=== PATIENT | female | born 1990 | race American Indian/Alaskan Native ===

== ENCOUNTER 2019-04-13 13:35 | Emergency (ER) | payer MEDICAID | END 2019-04-13 21:01 | disposition left against medical advice (07) | LOC: ED 13:35 ==

== ENCOUNTER 2019-04-16 10:49 | Emergency (ER) | payer MEDICAID | END 2019-04-16 12:18 | disposition left against medical advice (07) | LOC: ED 10:49 | DX: K08.89 Other specified disorders of teeth and supporting structures (principal); Z53.21 Procedure and treatment not carried out due to patient leaving prior to being seen by health care provider ==